=== PATIENT | female | born 1950 | race Caucasian/White ===

== ENCOUNTER → 2018-08-02 | Day surgery (SDC) | payer OTHER ==
[~2018-08-02] VITALS: Ht 157.4 cm; Wt 70.8 kg
[~2018-08-02] MED LIST: CARAFATE1 GM PO; CYMBALTA60 MG PO; NORVASC5 MG PO; Ranitidine Hyd150 MG PO
--- NOTE | ~2018-08-02 | O ---
[place], [place] OPERATIVE NOTE [id number] UNIT #: [id number] ROOM: DOCTOR: AUSTEN FALCON MD BIRTHDATE: [birth year] DOS: 08/02/2018 PREOPERATIVE DIAGNOSIS: Cataract, right eye. POSTOPERATIVE DIAGNOSIS: Cataract, right eye. OPERATION: Extracapsular cataract extraction by phacoemulsification with posterior chamber intraocular lens implantation, right eye. ANESTHESIA: Monitored standby. OPERATIVE FINDINGS AND PROCEDURE: 2% Xylocaine topical anesthetic gel was applied to the eye in the preop area. The patient was taken to the operating room and prepped and draped in the standard fashion for sterile intraocular surgery. A time out procedure was performed verifying correct patient, correct site and corrects lens with Jacky Falcon M.D. The operating microscope was swung into position and the lid speculum was inserted. Using a Koki paracentesis blade, a paracentesis was made through clear cornea. Viscoelastic was used to fill the anterior chamber. Using a metal keratome a 2.4 mm self-sealing clear corneal cataract incision was made temporally at the limbus. Using a pre-bent 25 gauge cystotome needle, a standard continuous curvilinear capsulorrhexis was performed. The anterior capsule was removed with forceps. The lens nucleus was hydrodissected and phacoemulsified in the posterior chamber. Cortical material was removed with the irrigation aspiration hand piece and the posterior capsule was then polished with a curet under irrigation. The posterior chamber and capsular bag were filled with viscoelastic. A posterior chamber intraocular lens manufactured by: [employer], Model [id number], 17.0 diopters in strength were then inserted into the posterior chamber and within the capsular bag using the lens cartridge and injector system. Viscoelastic was removed using the irrigation aspiration handpiece. The anterior chamber was filled with balanced salt solution through the paracentesis. Both the paracentesis site and cataract incisions were hydrated with BSS and verified to be water-tight and self-sealing. Cefuroxime 1 mg/0.1 mL was injected into the anterior chamber through the paracentesis site. The incision checked to be water-tight using a Weck-Pascale sponge. The integrity of the cataract wound and ocular tension were checked. Lid speculum and drapes were removed. The patient was transferred from the operating room to the recovery room in satisfactory condition. [place], [place] OPERATIVE NOTE NAME: UBALDO ORTEZ UNIT #: [id number] ROOM: DOCTOR: AUSTEN FALCON MD BIRTHDATE: [birth year] AUSTEN FALCON MD CM:OPRECORD:OPERATIVE NOTE [id number] AUSTEN FALCON MD 08/02/18 1507 interface
[2018-08-02 12:00] VITALS: BP 153/73
[2018-08-02 13:24] VITALS: BP 141/75
[2018-08-02 13:40] VITALS: BP 132/72
[2018-08-02 13:54] VITALS: BP 140/65
== END | disposition home or self-care (01) ==
LOC: SDC 07-27 09:30
DX: H25.811 Combined forms of age-related cataract, right eye (principal); I10 Essential (primary) hypertension; F32.9 Major depressive disorder, single episode, unspecified; F41.9 Anxiety disorder, unspecified; K21.9 Gastro-esophageal reflux disease without esophagitis; M19.90 Unspecified osteoarthritis, unspecified site; Z98.890 Other specified postprocedural states; Z79.899 Other long term (current) drug therapy; Z90.49 Acquired absence of other specified parts of digestive tract; Z98.51 Tubal ligation status; Z86.79 Personal history of other diseases of the circulatory system

== ENCOUNTER → 2018-08-23 | Day surgery (SDC) | payer OTHER ==
[~2018-08-23] VITALS: Ht 157.4 cm; Wt 70.8 kg
--- NOTE | ~2018-08-23 | O ---
[place], [place] OPERATIVE NOTE [id number] UN[facility] #: [id number] ROOM: DOCTOR: AUSTEN FALCON MD BIRTHDATE: [birth year] DOS: 08/23/2018 PREOPERATIVE DIAGNOSIS: Cataract, left eye. POSTOPERATIVE DIAGNOSIS: Cataract, left eye. OPERATION: Extracapsular cataract extraction by phacoemulsification with posterior chamber intraocular lens implantation, left eye. ANESTHESIA: Monitored standby. OPERATIVE FINDINGS AND PROCEDURE: 2% Xylocaine topical anesthetic gel was applied to the eye in the preop area. The patient was taken to the operating room and prepped and draped in the standard fashion for sterile intraocular surgery. A time out procedure was performed verifying correct patient, correct site and corrects lens with Jacky Falcon M.D. The operating microscope was swung into position and the lid speculum was inserted. Using a Koki paracentesis blade, a paracentesis was made through clear cornea. Viscoelastic was used to fill the anterior chamber. Using a metal keratome a 2.4 mm self-sealing clear corneal cataract incision was made temporally at the limbus. Using a pre-bent 25 gauge cystotome needle, a standard continuous curvilinear capsulorrhexis was performed. The anterior capsule was removed with forceps. The lens nucleus was hydrodissected and phacoemulsified in the posterior chamber. Cortical material was removed with the irrigation aspiration hand piece and the posterior capsule was then polished with a curet under irrigation. The posterior chamber and capsular bag were filled with viscoelastic. A posterior chamber intraocular lens manufactured by: [employer], Model #[id number], and 16.0 diopters in strength were then inserted into the posterior chamber and within the capsular bag using the lens cartridge and injector system. Viscoelastic was removed using the irrigation aspiration handpiece. The anterior chamber was filled with balanced salt solution through the paracentesis. Both the paracentesis site and cataract incisions were hydrated with BSS and verified to be water-tight and self-sealing. Cefuroxime 1 mg/0.1 mL was injected into the anterior chamber through the paracentesis site. The incision checked to be water-tight using a Weck-Pascale sponge. The integrity of the cataract wound and ocular tension were checked. Lid speculum and drapes were removed. The patient was transferred from the operating room to the recovery room in [facility] condition. [place], [place] OPERATIVE NOTE NAME: UBALDO ORTEZ UNIT #: [id number] ROOM: DOCTOR: AUSTEN FALCON MD BIRTHDATE: [birth year] AUSTEN FALCON MD CM:OPRECORD:OPERATIVE NOTE [id number] AUSTEN FALCON MD 08/23/18 1051 interface
[2018-08-23 09:33] VITALS: BP 131/73
[2018-08-23 09:45] VITALS: BP 124/63
[2018-08-23 10:03] VITALS: BP 115/63
== END | disposition home or self-care (01) ==
LOC: SDC 08-17 09:30
DX: H25.812 Combined forms of age-related cataract, left eye (principal); I10 Essential (primary) hypertension; K21.9 Gastro-esophageal reflux disease without esophagitis; F41.9 Anxiety disorder, unspecified; F32.9 Major depressive disorder, single episode, unspecified; Z79.899 Other long term (current) drug therapy; Z98.41 Cataract extraction status, right eye; Z96.1 Presence of intraocular lens; Z90.49 Acquired absence of other specified parts of digestive tract; Z98.51 Tubal ligation status; Z98.890 Other specified postprocedural states; Z72.89 Other problems related to lifestyle

== ENCOUNTER → 2018-12-29 | Outpatient (CLI) | payer OTHER | END | disposition home or self-care (01) | LOC: RESCLI 01:07 | DX: Z12.11 Encounter for screening for malignant neoplasm of colon (principal); K21.9 Gastro-esophageal reflux disease without esophagitis; E66.9 Obesity, unspecified; M19.90 Unspecified osteoarthritis, unspecified site; Z79.899 Other long term (current) drug therapy; Z90.49 Acquired absence of other specified parts of digestive tract; Z88.8 Allergy status to other drugs, medicaments and biological substances; Z87.891 Personal history of nicotine dependence ==

== ENCOUNTER → 2019-02-06 | Outpatient (CLI) | payer OTHER ==
[2019-02-06 10:49] LABS: BASO % 0.4 % (0.0-1.0); EOS # 0.2 10*3/uL (0.0-0.4); EOS % 2.5 % (1.0-4.0); HEMATOCRIT 42.5 % (37.0-47.0); HEMOGLOBIN 14.4 g/dl (12.0-16.0); LYMPH # 3.4 10*3/uL (1.3-4.4); LYMPH % 37.5 % (27.0-41.0); MEAN CELL VOLUME 90.6 fl (81.0-99.0); MEAN CORPUSCULAR HGB 30.7 pg (27.0-31.0); MEAN CORPUSCULAR HGB CONC 33.9 g/dl (33.0-37.0); MEAN PLATELET VOLUME 9.8 fl (9.6-12.3); MONO # 0.7 10*3/uL (0.1-1.0); MONO % 8.1 % (3.0-9.0); NEUT # 4.6 10*3/uL (2.3-7.9); NEUT % 50.8 % (47.0-73.0); PLATELET COUNT AUTOMATED 258 10*3/uL (130-400); RED BLOOD COUNT 4.69 10*6/uL (4.10-5.10); RED CELL DISTRI WIDTH 13.1 % (0-14.5); WHITE BLOOD COUNT 9.1 10*3/uL (4.8-10.8)
[2019-02-06 11:08] LABS: ALBUMIN 3.8 gm/dl (3.1-4.5); ALKALINE PHOSPHATASE 74 U/L (45-117); BUN 9 mg/dl (7-24); CHLORIDE 104 mmol/L (98-107); CHOLESTEROL 209 mg/dL (<200); HDL CHOLESTEROL 45 mg/dl (40-60); LDL CHOLESTEROL 113 mg/dL (9-159); POTASSIUM 3.5 mmol/L (3.5-5.1); SGOT/AST 17 IU/L (3-35); SGPT/ALT 30 U/L (12-78); SODIUM 140 mmol/L (136-145); TOTAL PROTEIN 7.2 gm/dL (6.4-8.2); TRIGLYCERIDES 257 mg/dl (<150); VLDL CHOLESTEROL 51 mg/dL (6-40)
[2019-02-06 11:52] LABS: VITAMIN D, 25-HYDROXY 20.5 ng/mL (30-100)
[2019-02-07 09:12] LABS: H PYLORI IGG AB 162289 0.36 (0.00-0.79)
[2019-02-07 17:06] LABS: H.PYLORI IGM <9.0 units (0.0-8.9); H.PYLORI IgA 163170 <9.0 units (0.0-8.9)
== END | disposition home or self-care (01) ==
LOC: LAB 10:25
PROVIDERS: Student in an Organized Health Care Education/Training Program
DX: K21.9 Gastro-esophageal reflux disease without esophagitis (principal); M19.90 Unspecified osteoarthritis, unspecified site; I10 Essential (primary) hypertension; E66.9 Obesity, unspecified; E55.9 Vitamin D deficiency, unspecified; Z79.899 Other long term (current) drug therapy

== ENCOUNTER 2022-11-25 19:36 | Emergency (ER) | payer MEDICARE ==
[~2022-11-25] VITALS: Ht 160 cm; Wt 81.6 kg
[2022-11-25 19:46] VITALS: BP 128/68
[2022-11-25] MEDS ORDERED: Ondansetron4 MG PO (20:29)
[2022-11-25] MEDS ORDERED: CYCLOBENZAPRINE10 MG PO (20:29)
== END 2022-11-25 20:45 | disposition home or self-care (01) ==
LOC: ED 19:36
DX: S16.1XXA Strain of muscle, fascia and tendon at neck level, initial encounter (principal); S09.90XA Unspecified injury of head, initial encounter; Z79.899 Other long term (current) drug therapy; Z90.49 Acquired absence of other specified parts of digestive tract; Z98.51 Tubal ligation status; F17.200 Nicotine dependence, unspecified, uncomplicated; W17.89XA Other fall from one level to another, initial encounter; Y93.89 Activity, other specified; Y92.89 Other specified places as the place of occurrence of the external cause; Y99.8 Other external cause status